=== PATIENT | male | born 1960 | race African-American/Black ===

== ENCOUNTER 2019-03-16 22:04 | Emergency (ER) | payer MEDICAID ==
[~2019-03-16] VITALS: Ht 175.3 cm; Wt 155.0 kg
[2019-03-16] MEDS ORDERED: ASPIRIN 81MG TABLET PO ONE (23:00)
[2019-03-16] MEDS ORDERED: NITROGLYCERIN OINT 1GM/INCH UDPKT TD ONE (23:00)
[2019-03-16 23:36] LABS: BASOPHILS % 0.6 % (0.0-2.0); EOSINOPHILS % 6.9 % (0.0-5.0); HEMATOCRIT. 31.7 % (42.0-52.0); HEMOGLOBIN. 10.6 g/dL (14.0-18.0); LYMPHOCYTES % 35.5 % (20.0-50.0); MEAN CORPUSCULAR HEMOGLOBIN 28.3 pg (28.0-32.0); MEAN CORPUSCULAR VOLUME 84.7 fL (80.0-94.0); MEAN PLATELET VOLUME 8.9 fl (7.4-10.4); MONOCYTES % 9.9 % (2.0-8.0); NEUTROPHILS % 47.1 % (40.0-76.0); PLATELET 149 x1000/uL (130-400); RED BLOOD CELL COUNT 3.74 mill/uL (4.7-6.1); RED CELL DISTRIBUTION WIDTH 13.4 % (11.6-14.6)
[2019-03-16 23:42] LABS: CHLORIDE 107 mEq/L (98-107)
[2019-03-17] MEDS ORDERED: DIPHENOXYLATE/ATROPINE 2.5/0.025MG TABLET PO ONE (00:30)
[2019-03-17 01:21] LABS: *BARBITURATES SCREEN URINE NEGATIVE (NEGATIVE)
[2019-03-17 01:22] LABS: *AMPHETAMINES SCREEN URINE NEGATIVE (NEGATIVE); *BENZODIAZEPINES SCREEN URINE NEGATIVE (NEGATIVE); *COCAINE SCREEN URINE NEGATIVE (NEGATIVE); METHADONE URINE SCREEN NEGATIVE (NEGATIVE); OPIATES URINE SCREEN NEGATIVE (NEGATIVE); PHENCYCLIDINE URINE SCREEN NEGATIVE (NEGATIVE)
[2019-03-17 01:24] LABS: CANNABINOID URINE SCREEN NEGATIVE (NEGATIVE)
[2019-03-17] MEDS ORDERED: POTASSIUM CHLORIDE 20MEQ TABLET SR PO SCH (01:30)
[2019-03-17 02:56] VITALS: BP 115/68
== END 2019-03-17 03:03 | disposition left against medical advice (07) ==
LOC: ER 22:04 → EDBEDREQ 03-17 01:33 → EDBEDREQTM 03-17 01:33 → CANBEDREQ 03-17 02:21 → ER 03-17 03:03
DX: R07.89 Other chest pain (principal); F17.200 Nicotine dependence, unspecified, uncomplicated; E11.9 Type 2 diabetes mellitus without complications; I25.2 Old myocardial infarction; Z98.890 Other specified postprocedural states; Z88.0 Allergy status to penicillin
CPT/HCPCS: 36415; 71045; 80053; 80305; 83605; 83880; 84484; 85025; 99284; Z7610

== ENCOUNTER 2019-04-20 05:34 | Emergency (ER) | payer MEDICAID ==
[~2019-04-20] VITALS: Ht 172.7 cm; Wt 159.0 kg
[2019-04-20] MEDS ORDERED: KETOROLAC 60MG/2ML VIAL IM ONE (06:30)
[2019-04-20] MEDS ORDERED: OXYCODONE HCL/ACETAMINOPHEN 5/325MG TABLET PO ONE (06:30)
[2019-04-20 07:26] VITALS: BP 122/68
== END 2019-04-20 07:27 | disposition home or self-care (01) ==
LOC: EDSEX 05:34 → ER 05:34
DX: M54.5 Low back pain (principal)
CPT/HCPCS: 96372; 99283; J1885; Z7610

== ENCOUNTER 2020-02-07 17:28 | Inpatient (IN) | payer MEDICAID ==
[~2020-02-07] VITALS: Ht 175.3 cm; Wt 121.6 kg
[2020-02-07] MEDS ORDERED: ONDANSETRON HCL 4MG/2ML INJ IV STA (17:37)
[2020-02-07] MEDS ORDERED: SODIUM CHLORIDE 0.9% 1,000 ML IV ONE (17:37)
[2020-02-07 18:10] LABS: HEMATOCRIT. 37.8 % (36.0-48.0); MEAN CORPUSCULAR HEMOGLOBIN 27.1 pg (28.0-32.0); MEAN CORPUSCULAR VOLUME 85.3 fL (81.0-99.0); MEAN PLATELET VOLUME 9.8 fl (7.4-10.4); PLATELET 185 x1000/uL (130-400); RED BLOOD CELL COUNT 4.43 mill/uL (4.2-5.4); RED CELL DISTRIBUTION WIDTH 15.6 % (11.6-14.6)
[2020-02-07 18:16] LABS: CHLORIDE 118 mEq/L (98-107)
[2020-02-07 18:19] LABS: ETHANOL BLOOD < 10 mg/dL
[2020-02-07 18:28] LABS: CREATINE KINASE 137 IU/L (26-192)
[2020-02-07 18:44] LABS: CLARITY URINE CLOUDY (CLEAR); COLOR URINE DARK YELLOW (YELLOW); KETONES URINE 1+ (NEGATIVE); LEUKOCYTE ESTERASE URINE NEGATIVE (NEGATIVE); NITRITE URINE NEGATIVE (NEGATIVE); OCCULT BLOOD URINE NEGATIVE (NEGATIVE); PH URINE 5.5 (4.5-8.0); PROTEIN URINE 2+ (NEGATIVE); SPECIFIC GRAVITY URINE 1.025 (1.005-1.030)
[2020-02-07 18:55] LABS: *AMPHETAMINES SCREEN URINE NEGATIVE (NEGATIVE); *BARBITURATES SCREEN URINE NEGATIVE (NEGATIVE); *BENZODIAZEPINES SCREEN URINE NEGATIVE (NEGATIVE); *COCAINE SCREEN URINE NEGATIVE (NEGATIVE)
[2020-02-07 18:56] LABS: CANNABINOID URINE SCREEN NEGATIVE (NEGATIVE); METHADONE URINE SCREEN NEGATIVE (NEGATIVE); OPIATES URINE SCREEN NEGATIVE (NEGATIVE); PHENCYCLIDINE URINE SCREEN NEGATIVE (NEGATIVE)
[2020-02-07 19:15] LABS: PLATELET ESTIMATE NORMAL
[2020-02-07] MEDS ORDERED: SODIUM CHLORIDE 0.9% 1,000 ML IV NR (20:15)
[2020-02-08] MEDS ORDERED: SODIUM CHLORIDE 0.9% 1,000 ML IV NR (00:15)
[2020-02-08] MEDS ORDERED: ASPIRIN 325MG TABLET PO NR (00:15)
[2020-02-08 01:00] VITALS: BP 118/68
[2020-02-08] MEDS ORDERED: ASPI-986 PO (01:35)
[2020-02-08] MEDS ORDERED: DEXTROSE 50% WATER 50ML SYRINGE IV PRN (02:00)
[2020-02-08] MEDS ORDERED: ACETAMINOPHEN 325MG TABLET PO PRN (02:00)
[2020-02-08 03:00] LABS: BASOPHILS % 0.7 % (0.0-2.0); HEMATOCRIT. 37.2 % (36.0-48.0); HEMOGLOBIN. 11.9 g/dL (12.0-16.0); MEAN CORPUSCULAR HEMOGLOBIN 27.1 pg (28.0-32.0); MEAN CORPUSCULAR VOLUME 84.9 fL (81.0-99.0); MEAN PLATELET VOLUME 9.8 fl (7.4-10.4); MONOCYTES % 6.3 % (2.0-8.0); PLATELET 159 x1000/uL (130-400); RED BLOOD CELL COUNT 4.39 mill/uL (4.2-5.4); RED CELL DISTRIBUTION WIDTH 15.6 % (11.6-14.6)
[2020-02-08] MEDS: SODIUM CHL 0.45% + KCL 20MEQ/L 1,000 ML IV SCH ×3 (03:14→23:00)
[2020-02-08 03:20] LABS: CHLORIDE 118 mEq/L (98-107)
[2020-02-08 04:00] VITALS: BP 101/56
[2020-02-08] MEDS: INSULIN LISPRO 100 UNITS/ML SUBCUT SCH ×4 (07:35→21:00)
[2020-02-08] MEDS: BLOOD SUGAR DIAGNOSTIC STRIP TEST SCH ×4 (07:35→21:00)
[2020-02-08 08:00] VITALS: BP 157/63
[2020-02-08] MEDS: FAMOTIDINE 20MG TABLET PO SCH (08:05)
[2020-02-08] MEDS ORDERED: CLONIDINE 0.1MG TABLET PO PRN (08:45)
[2020-02-08] MEDS: AMLODIPINE 10MG TABLET PO SCH (08:57)
[2020-02-08] MEDS ORDERED: ASPIRIN 325MG TABLET PO SCH (09:00)
[2020-02-08 12:00] VITALS: BP 144/72
[2020-02-09] MEDS: BLOOD SUGAR DIAGNOSTIC STRIP TEST SCH ×4 (07:40→21:00)
[2020-02-09] MEDS: INSULIN LISPRO 100 UNITS/ML SUBCUT SCH ×4 (08:10→21:00)
[2020-02-09] MEDS: SODIUM CHL 0.45% + KCL 20MEQ/L 1,000 ML IV SCH ×2 (09:00→19:00)
[2020-02-09] MEDS: AMLODIPINE 10MG TABLET PO SCH (09:00)
[2020-02-09] MEDS: FAMOTIDINE 20MG TABLET PO SCH (09:00)
[2020-02-09 12:00] VITALS: BP 119/65
[2020-02-09 16:00] VITALS: BP 115/71
[2020-02-09] MEDS ORDERED: AMLO10TA80 PO (16:05)
[2020-02-09 17:19] LABS: BASOPHILS % 0.5 % (0.0-2.0); EOSINOPHILS % 1.6 % (0.0-5.0); LYMPHOCYTES % 20.3 % (20.0-50.0); MEAN CORPUSCULAR HEMOGLOBIN 27.2 pg (28.0-32.0); MEAN CORPUSCULAR VOLUME 84.2 fL (81.0-99.0); MEAN PLATELET VOLUME 9.9 fl (7.4-10.4); MONOCYTES % 7.5 % (2.0-8.0); NEUTROPHILS % 70.1 % (40.0-76.0); PLATELET 122 x1000/uL (130-400); RED BLOOD CELL COUNT 4.04 mill/uL (4.2-5.4); RED CELL DISTRIBUTION WIDTH 15.6 % (11.6-14.6)
[2020-02-09 17:31] LABS: CHLORIDE 108 mEq/L (98-107)
[2020-02-09 20:33] VITALS: BP 138/73
[2020-02-09 23:52] VITALS: BP 124/59
[2020-02-10 04:00] VITALS: BP 116/62
[2020-02-10] MEDS: SODIUM CHL 0.45% + KCL 20MEQ/L 1,000 ML IV SCH (05:00)
[2020-02-10] MEDS: BLOOD SUGAR DIAGNOSTIC STRIP TEST SCH ×4 (06:25→21:02)
[2020-02-10] MEDS: INSULIN LISPRO 100 UNITS/ML SUBCUT SCH ×4 (06:25→21:00)
[2020-02-10] MEDS: FAMOTIDINE 20MG TABLET PO SCH (08:48)
[2020-02-10] MEDS: AMLODIPINE 10MG TABLET PO SCH (08:48)
[2020-02-10 09:00] VITALS: BP 102/57
[2020-02-10 12:00] VITALS: BP 100/61
[2020-02-10 20:00] VITALS: BP 100/56
[2020-02-11] VITALS (7 sets, daily range): BP systolic 100–134; BP diastolic 53–79
[2020-02-11] MEDS: SODIUM CHL 0.45% + KCL 20MEQ/L 1,000 ML IV SCH ×3 (00:17→21:00)
[2020-02-11] MEDS: INSULIN LISPRO 100 UNITS/ML SUBCUT SCH ×3 (05:36→21:00)
[2020-02-11] MEDS: BLOOD SUGAR DIAGNOSTIC STRIP TEST SCH ×3 (05:36→21:00)
[2020-02-11] MEDS: AMLODIPINE 10MG TABLET PO SCH (08:48)
[2020-02-11] MEDS: FAMOTIDINE 20MG TABLET PO SCH (08:48)
[2020-02-12] VITALS: BP 109/69
[2020-02-12 04:00] VITALS: BP 104/75
[2020-02-12] MEDS: INSULIN LISPRO 100 UNITS/ML SUBCUT SCH ×2 (06:45→11:45)
[2020-02-12] MEDS: BLOOD SUGAR DIAGNOSTIC STRIP TEST SCH ×2 (06:45→11:45)
[2020-02-12] MEDS: SODIUM CHL 0.45% + KCL 20MEQ/L 1,000 ML IV SCH (07:00)
[2020-02-12 08:00] VITALS: BP 111/79
[2020-02-12] MEDS: FAMOTIDINE 20MG TABLET PO SCH (09:29)
[2020-02-12] MEDS: AMLODIPINE 10MG TABLET PO SCH (09:29)
[2020-02-12 12:03] VITALS: BP 125/78
[2020-02-12 12:04] VITALS: BP 125/78
== END 2020-02-12 14:20 | disposition home or self-care (01) | DRG 815 ==
LOC: EDSEX → ER 17:28 → MICUSO 20:37 → 6WST 22:47 → 7WST 02-08 01:23 → 8WST 02-09 23:39
PROVIDERS: ADMIT Internal Medicine; ATTEND Internal Medicine
DX: T67.01XA Heatstroke and sunstroke, initial encounter (principal); N17.0 Acute kidney failure with tubular necrosis; X30.XXXA Exposure to excessive natural heat, initial encounter; I10 Essential (primary) hypertension; E87.1 Hypo-osmolality and hyponatremia; E87.8 Other disorders of electrolyte and fluid balance, not elsewhere classified; E87.6 Hypokalemia; E66.9 Obesity, unspecified; F64.9 Gender identity disorder, unspecified; S90.822A Blister (nonthermal), left foot, initial encounter; E11.9 Type 2 diabetes mellitus without complications; Z20.828 Contact with and (suspected) exposure to other viral communicable diseases; Z60.2 Problems related to living alone; G40.909 Epilepsy, unspecified, not intractable, without status epilepticus; Z88.0 Allergy status to penicillin; Z59.0 Homelessness; Z87.891 Personal history of nicotine dependence; Y93.89 Activity, other specified; Y92.89 Other specified places as the place of occurrence of the external cause; Y99.8 Other external cause status; Z68.39 Body mass index [BMI] 39.0-39.9, adult; S90.821A Blister (nonthermal), right foot, initial encounter
CPT/HCPCS: 36415; 71045; 80048; 80053; 80305; 80320; 81003; 82140; 82550; 82962; 83036; 83880; 84484; 85025; 87426; 93005; 99291; J1815; J2405; J3480; J7030; G0480

== ENCOUNTER 2020-02-12 22:13 | Inpatient (IN) | payer MEDICAID ==
[~2020-02-12] VITALS: Ht 175.3 cm; Wt 149.7 kg
[~2020-02-12 22:13] MED LIST: AMLO10TA80 PO; ASPI-986 PO
[2020-02-12] MEDS ORDERED: ASPIRIN 81MG TABLET PO ONE (22:45)
[2020-02-13 00:08] LABS: HEMATOCRIT. 38.2 % (42.0-52.0); HEMOGLOBIN. 12.4 g/dL (14.0-18.0); LYMPHOCYTES % 38.8 % (20.0-50.0); MEAN CORPUSCULAR HEMOGLOBIN 27.6 pg (28.0-32.0); MEAN CORPUSCULAR VOLUME 84.9 fL (80.0-94.0); MEAN PLATELET VOLUME 9.9 fl (7.4-10.4); MONOCYTES % 9.2 % (2.0-8.0); PLATELET 153 x1000/uL (130-400); RED CELL DISTRIBUTION WIDTH 14.9 % (11.6-14.6)
[2020-02-13 00:20] LABS: CHLORIDE 105 mEq/L (98-107)
[2020-02-13 12:15] VITALS: BP 117/69
[2020-02-13] MEDS ORDERED: CLONIDINE 0.1MG TABLET PO PRN (13:45)
[2020-02-13] MEDS ORDERED: ACETAMINOPHEN 325MG TABLET PO PRN (13:45)
[2020-02-13] MEDS ORDERED: ONDANSETRON HCL 4MG/2ML INJ IV PRN (13:45)
[2020-02-13] MEDS ORDERED: MORPHINE SULFATE 2 MG/ML CPJ (NOT FOR IM USE) IV PRN (13:45)
[2020-02-13] MEDS ORDERED: DIPHENHYDRAMINE 50MG/ML VIAL IV PRN (13:45)
[2020-02-13] MEDS ORDERED: IPRATROPIUM/ALBUTEROL 0.5-3(2.5)MG/3ML NEB HHN PRN (14:00)
[2020-02-13] MEDS ORDERED: DEXTROSE 50% WATER 50ML SYRINGE IV PRN ×2 (14:00)
[2020-02-13] MEDS: ENOXAPARIN 40MG/0.4ML SYR SUBCUT SCH ×2 (14:28→21:36)
[2020-02-13 20:00] VITALS: BP 100/64
[2020-02-13] MEDS: INSULIN LISPRO 100 UNITS/ML SUBCUT SCH (21:00)
[2020-02-13] MEDS: BLOOD SUGAR DIAGNOSTIC STRIP TEST SCH (21:00)
[2020-02-14] VITALS: BP 105/59
[2020-02-14 04:00] VITALS: BP 107/59
[2020-02-14 06:01] LABS: BASOPHILS % 0.7 % (0.0-2.0); EOSINOPHILS % 6.4 % (0.0-5.0); HEMATOCRIT. 32.2 % (42.0-52.0); HEMOGLOBIN. 10.6 g/dL (14.0-18.0); LYMPHOCYTES % 37.8 % (20.0-50.0); MEAN CORPUSCULAR HEMOGLOBIN 27.3 pg (28.0-32.0); MEAN CORPUSCULAR VOLUME 83.2 fL (80.0-94.0); MONOCYTES % 10.1 % (2.0-8.0); PLATELET 133 x1000/uL (130-400); RED BLOOD CELL COUNT 3.87 mill/uL (4.7-6.1); RED CELL DISTRIBUTION WIDTH 15.3 % (11.6-14.6)
[2020-02-14 06:17] LABS: CHLORIDE 104 mEq/L (98-107)
[2020-02-14] MEDS: BLOOD SUGAR DIAGNOSTIC STRIP TEST SCH ×4 (06:18→20:29)
[2020-02-14] MEDS: INSULIN LISPRO 100 UNITS/ML SUBCUT SCH ×4 (06:18→20:30)
[2020-02-14 06:28] LABS: HDL CHOLESTEROL 40 mg/dL (40-59); LDL CHOLESTEROL 76 mg/dL (5-100)
[2020-02-14 08:00] VITALS: BP 94/64
[2020-02-14] MEDS: ENOXAPARIN 40MG/0.4ML SYR SUBCUT SCH ×2 (08:53→20:29)
[2020-02-14 12:00] VITALS: BP 95/60
[2020-02-14 16:00] VITALS: BP 98/59
[2020-02-14] MEDS ORDERED: KETOROLAC 30MG/ML VIAL IV PRN (17:00)
[2020-02-14 20:00] VITALS: BP 114/71
[2020-02-15] VITALS: BP 108/72
[2020-02-15 04:00] VITALS: BP 126/73
[2020-02-15] MEDS: INSULIN LISPRO 100 UNITS/ML SUBCUT SCH ×4 (06:19→21:00)
[2020-02-15] MEDS: BLOOD SUGAR DIAGNOSTIC STRIP TEST SCH ×4 (06:19→21:49)
[2020-02-15 08:00] VITALS: BP 104/67
[2020-02-15] MEDS: ENOXAPARIN 40MG/0.4ML SYR SUBCUT SCH ×2 (10:12→21:31)
[2020-02-15 12:00] VITALS: BP 115/63
[2020-02-15 16:00] VITALS: BP 101/48
[2020-02-15 20:00] VITALS: BP 107/73
[2020-02-16] VITALS: BP 113/75
[2020-02-16 04:00] VITALS: BP 126/79
[2020-02-16] MEDS: BLOOD SUGAR DIAGNOSTIC STRIP TEST SCH ×4 (06:39→20:50)
[2020-02-16] MEDS: INSULIN LISPRO 100 UNITS/ML SUBCUT SCH ×4 (06:40→20:50)
[2020-02-16 08:00] VITALS: BP 107/65
[2020-02-16] MEDS: ENOXAPARIN 40MG/0.4ML SYR SUBCUT SCH ×2 (08:37→20:49)
[2020-02-16 16:00] VITALS: BP 113/69
[2020-02-16 20:00] VITALS: BP 102/60
[2020-02-17] VITALS: BP 110/66
[2020-02-17] MEDS: BLOOD SUGAR DIAGNOSTIC STRIP TEST SCH ×4 (07:10→20:33)
[2020-02-17] MEDS: INSULIN LISPRO 100 UNITS/ML SUBCUT SCH ×4 (07:40→20:33)
[2020-02-17 08:00] VITALS: BP 99/58
[2020-02-17] MEDS: ENOXAPARIN 40MG/0.4ML SYR SUBCUT SCH ×2 (09:00→20:33)
[2020-02-17 12:00] VITALS: BP 104/53
[2020-02-17 16:00] VITALS: BP 116/65
[2020-02-17 20:00] VITALS: BP 112/73
[2020-02-18] VITALS: BP 115/60
[2020-02-18 04:00] VITALS: BP 100/77
[2020-02-18] MEDS: BLOOD SUGAR DIAGNOSTIC STRIP TEST SCH ×4 (06:43→21:00)
[2020-02-18] MEDS: INSULIN LISPRO 100 UNITS/ML SUBCUT SCH ×4 (07:19→21:00)
[2020-02-18 08:00] VITALS: BP 104/52
[2020-02-18] MEDS: ENOXAPARIN 40MG/0.4ML SYR SUBCUT SCH ×2 (09:00→21:00)
[2020-02-18 12:00] VITALS: BP 100/51
[2020-02-19] MEDS: BLOOD SUGAR DIAGNOSTIC STRIP TEST SCH ×4 (07:10→21:09)
[2020-02-19] MEDS: INSULIN LISPRO 100 UNITS/ML SUBCUT SCH ×4 (07:40→21:00)
[2020-02-19] MEDS: ENOXAPARIN 40MG/0.4ML SYR SUBCUT SCH ×2 (09:00→21:09)
[2020-02-19] MEDS ORDERED: KETOROLAC 15MG/ML VIAL IV PRN (14:51)
[2020-02-19 16:00] VITALS: BP 116/69
[2020-02-19 20:00] VITALS: BP 112/76
[2020-02-20] VITALS: BP 101/51
[2020-02-20 04:00] VITALS: BP 120/51
[2020-02-20] MEDS: BLOOD SUGAR DIAGNOSTIC STRIP TEST SCH ×4 (06:39→22:10)
[2020-02-20] MEDS: INSULIN LISPRO 100 UNITS/ML SUBCUT SCH ×4 (07:41→22:10)
[2020-02-20 08:00] VITALS: BP 128/69
[2020-02-20] MEDS: ENOXAPARIN 40MG/0.4ML SYR SUBCUT SCH ×2 (09:00→22:15)
[2020-02-20 12:00] VITALS: BP 101/61
[2020-02-20 16:00] VITALS: BP 119/77
[2020-02-20 20:00] VITALS: BP 134/76
[2020-02-21] VITALS (8 sets, daily range): BP systolic 94–122; BP diastolic 51–77
[2020-02-21] MEDS: BLOOD SUGAR DIAGNOSTIC STRIP TEST SCH ×2 (07:20→11:54)
[2020-02-21] MEDS: INSULIN LISPRO 100 UNITS/ML SUBCUT SCH ×2 (07:46→11:54)
[2020-02-21] MEDS: ENOXAPARIN 40MG/0.4ML SYR SUBCUT SCH (20:16)
[2020-02-22] VITALS: BP 93/57
[2020-02-22 04:00] VITALS: BP 103/67
[2020-02-22 06:54] LABS: BASOPHILS % 0.7 % (0.0-2.0); EOSINOPHILS % 6.5 % (0.0-5.0); HEMATOCRIT. 36.8 % (42.0-52.0); HEMOGLOBIN. 12.1 g/dL (14.0-18.0); MEAN CORPUSCULAR HEMOGLOBIN 27.4 pg (28.0-32.0); MEAN CORPUSCULAR VOLUME 83.5 fL (80.0-94.0); MONOCYTES % 8.3 % (2.0-8.0); NEUTROPHILS % 39.5 % (40.0-76.0); PLATELET 179 x1000/uL (130-400); RED BLOOD CELL COUNT 4.41 mill/uL (4.7-6.1); RED CELL DISTRIBUTION WIDTH 15.3 % (11.6-14.6)
[2020-02-22 07:03] LABS: CHLORIDE 104 mEq/L (98-107)
[2020-02-22 08:00] VITALS: BP 120/71
[2020-02-22] MEDS: ENOXAPARIN 40MG/0.4ML SYR SUBCUT SCH ×2 (08:41→22:59)
[2020-02-22 12:00] VITALS: BP 122/72
[2020-02-22 16:33] VITALS: BP 106/63
[2020-02-22] MEDS: METFORMIN HCL 500MG TABLET PO SCH (17:13)
[2020-02-22 20:00] VITALS: BP 117/69
[2020-02-23] VITALS: BP 119/67
[2020-02-23 04:00] VITALS: BP 130/81
[2020-02-23] MEDS: METFORMIN HCL 500MG TABLET PO SCH ×2 (09:22→09:23)
[2020-02-23] MEDS: ENOXAPARIN 40MG/0.4ML SYR SUBCUT SCH ×2 (09:22→09:23)
[2020-02-23 12:00] VITALS: BP 103/66
[2020-02-23 20:00] VITALS: BP 122/71
[2020-02-24] VITALS: BP 128/74
[2020-02-24] MEDS: METFORMIN HCL 500MG TABLET PO SCH ×2 (07:50→16:48)
[2020-02-24] MEDS: ENOXAPARIN 40MG/0.4ML SYR SUBCUT SCH (09:00)
[2020-02-24] MEDS ORDERED: METF500T PO (15:25)
[2020-02-24 16:00] VITALS: BP 97/55
== END 2020-02-24 18:45 | disposition home or self-care (01) | DRG 361 ==
LOC: ER 22:13 → EDSEX 22:13 → 8WST 02-13 04:30 → ENRESERV 02-13 08:06 → 6EST 02-19 14:50
PROVIDERS: ADMIT Internal Medicine; ATTEND Internal Medicine
PROC: 0HBMXZZ Excision of Right Foot Skin, External Approach (ICD-10-PCS; principal; 2020-02-15)
PROC: 0HBNXZZ Excision of Left Foot Skin, External Approach (ICD-10-PCS; 2020-02-15)
DX: S90.821A Blister (nonthermal), right foot, initial encounter (principal); S90.822A Blister (nonthermal), left foot, initial encounter; I10 Essential (primary) hypertension; E66.9 Obesity, unspecified; E11.9 Type 2 diabetes mellitus without complications; Z59.0 Homelessness; Z68.42 Body mass index [BMI] 45.0-49.9, adult; G40.909 Epilepsy, unspecified, not intractable, without status epilepticus; M94.0 Chondrocostal junction syndrome [Tietze]
CPT/HCPCS: 36415; 71045; 80048; 80053; 80061; 82962; 83036; 83880; 84443; 84484; 85025; 93005; 93306; 97161; 99285; J1200; J1650; J1815; J1885; J2270